=== PATIENT | male | born 1980 | race African-American/Black ===

== ENCOUNTER 2020-09-07 14:15 | Emergency (ER) | payer SELFPAY ==
[2020-09-07] MEDS ORDERED: Ondansetron ODT 4 MG TAB ONE (14:46)
[2020-09-07] MEDS ORDERED: Ibuprofen 800 MG TAB ONE (14:46)
== END 2020-09-07 15:29 | disposition home or self-care (01) ==
LOC: MADERS 14:15
DX: K52.9 Noninfective gastroenteritis and colitis, unspecified (principal); I10 Essential (primary) hypertension
CPT/HCPCS: 99283; Q0162